=== PATIENT | male | born 1985 | race Hispanic/Latino ===

== ENCOUNTER 2019-03-14 08:20 | Day surgery (SDC) | payer OTHER ==
[2019-03-14] MEDS ORDERED: WATER FOR IRRIG STERILE IR ONE (08:34)
[2019-03-14] MEDS ORDERED: WATER FOR IRRIG STERILE ONE (08:34)
[2019-03-14] MEDS ORDERED: NACL 0.9% 1000 ML 1,000 ML IV SCH (09:00)
[2019-03-14] MEDS ORDERED: DIPRIVAN 10 MG/ML IV ONE ×2 (09:07→09:08)
[2019-03-14] MEDS ORDERED: XYLOCAINE 2% INFILTRATI ONE (09:08)
[2019-03-14] MEDS ORDERED: VERSED ONE (09:08)
--- NOTE | 2019-03-14 09:37 | Procedure Note ---
Date of procedure: 03/14/19 Pre-op diagnosis: H/O Cron's Disease (as per CT Scan) Post-op diagnosis: other (Small, Abnormal Area of Cecal Mucosa/ R/O Microscopic Colitis/ R/O Ileitis) Procedure: Colonoscopy with Biopsy Anesthesia: MAC Surgeon: SUZANNA WALSH Estimated blood loss: minimal Pathology: list Specimen disposition: to lab Condition: stable Disposition: same day (Avoid aspirin and NSAID for 5 days. Follow up in 1 to 2 weeks ([phone]). Further treatment as per Biopsy findings.)
--- NOTE | 2019-03-14 09:57 | Anesthesia Day of Surgery ---
Anesthesia Day of Surgery - Day of Surgery Patient Examined: Yes Patient H&P Reviewed: Yes Patient is NPO: Yes Beta Blockers: No
--- NOTE | 2019-03-14 09:58 | Anesthesia Consultation ---
Anesthesia Consult and Med Hx Date of service: 03/14/19 - Airway Anesthetic Teeth Evaluation: Good ROM Head & Neck: Adequate Mental/Hyoid Distance: Adequate Mallampati Class: Class III Intubation Access Assessment: Good - Pulmonary Exam CTA: Yes - Pre-Operative Health Status ASA Pre-Surgery Classification: ASA1 Proposed Anesthetic Plan: MAC
[2019-03-14 10:03] VITALS: BP 109/78
--- NOTE | 2019-03-14 10:30 | Operative Report ---
COLONOSCOPY INDICATIONS: This is a 33-year-old white male who was admitted to the hospital a year ago and had a CT scan done and was told that the CT scan was suggestive possibly of Crohn's disease. He is having a colonoscopy done for further assessment and to make sure that he truly does not have any evidence of inflammatory bowel disease. DESCRIPTION OF PROCEDURE: The procedure was done after getting informed consent with MAC anesthesia. Initial rectal exam was unremarkable. Instrument was passed through the rectum onto the cecum, which was identified by the ileocecal valve and the appendiceal orifice. Visualization was fair. The terminal ileum was intubated, showed normal mucosa. Biopsy was done to rule out for ileitis. There was one area of cecal patch, which showed a slightly abnormal mucosa. Photo documentation and biopsy was obtained to rule out for any type of colitis. The remaining part of the proximal colon, which included the remainder of the cecum and ascending colon including the transverse colon, descending colon and sigmoid showed normal mucosa with normal vascular markings. No significant pathology was noted in the remaining portion of the colon except for that small area of cecal patch, which showed some mild abnormal cecal mucosa. Random biopsies were done from the remaining portion of the colon to rule out for possible microscopic colitis. The rectum appeared normal on the retroverted view. ASSESSMENT: Possible history of inflammatory bowel disease. A small area of cecal mucosa, which may have been abnormal. Biopsy done to rule out for possible colitis. Normal terminal ileal mucosa. Biopsies, however, were done to rule out for possible ileitis and random biopsies done throughout the rest of the colon to rule out for possible microscopic colitis. There was minimal bleeding associated with the procedure. No complications associated with the procedure. The patient will be asked to avoid aspirin and aspirin-related products for the next few days and follow up in the office in 1-2 weeks' time. Further treatment adjustment will be according to the biopsy findings. RNAve was in the room throughout the entirety of the procedure. JOB# [id number] JOSE/NE
[2019-03-14] MEDS ORDERED: NACL 0.9% 1000 ML 1,000 ML ONE (11:34)
== END 2019-03-14 10:10 | disposition home or self-care (01) ==
LOC: GIO 08:20
DX: Z12.11 Encounter for screening for malignant neoplasm of colon (principal); K63.89 Other specified diseases of intestine; Z79.899 Other long term (current) drug therapy
CPT/HCPCS: 45380; 88305; J2250; J2704; J7030

== ENCOUNTER 2019-09-03 19:05 | Inpatient (IN) | payer OTHER ==
--- NOTE | 2019-09-03 20:26 | Event Note ---
ED Screening Note ED Screening Note: abdominal pain that began a couple days ago fever +diarrhea approximately 10 episodes no vomiting no nausea no sick contact no recent camping no recent travel no recent abx PMHx none no allergies to meds This initial assessment/diagnostic orders/clinical plan/treatment(s) is/are subject to change based on patients health status, clinical progression and re- assessment by fellow clinical providers in the ED. Further treatment and workup at subsequent clinical providers discretion. Patient/guardian urged not to elope from the ED as their condition may be serious if not clinically assessed and managed. Initial orders include: labs, Ct abd
[2019-09-03 21:39] LABS: Basophils % (Auto) 0.4 % (0.0-1.8); Eosinophils # (Auto) 0.2 K/mm3 (0.0-0.4); Eosinophils % (Auto) 1.8 % (0.0-4.3); Hematocrit 42.5 % (35.5-45.6); Hemoglobin 14.2 gm/dl (11.8-15.2); Lymphocytes # (Auto) 1.8 K/mm3 (1.2-5.4); Lymphocytes % (Auto) 16.1 % (13.4-35.0); Mean Corpuscular HGB Conc 33 % (32-34); Mean Corpuscular Volume 92 fl (84-94); Monocytes # (Auto) 1.2 K/mm3 (0.0-0.8); Monocytes % (Auto) 10.2 % (0.0-7.3); Platelet Count 262 K/mm3 (140-440); Red Blood Count 4.61 M/mm3 (3.65-5.03); Red Cell Distribution Width 12.6 % (13.2-15.2)
[2019-09-03 21:52] LABS: Alanine Aminotransferase 14 units/L (7-56); BUN/Creatinine Ratio 10; Blood Urea Nitrogen 10 mg/dL (9-20); Calcium 9.4 mg/dL (8.4-10.2); Hemolysis Index 3
[2019-09-03] MEDS ORDERED: LOPERAMIDE 2 MG CAP PO ONE (22:27)
[2019-09-03] MEDS ORDERED: ACETAMINOPHEN 325 MG TAB PO ONE (22:27)
[2019-09-03] MEDS ORDERED: LOPERAMIDE 2 MG/10 ML ORAL LIQD PO ONE (22:27)
[2019-09-03] MEDS ORDERED: SODIUM CHLORIDE 0.9% 1000 ML 1,000 ML IV ONE (22:27)
[2019-09-03] MEDS ORDERED: dexAMETHasone 20 MG/5 ML VIAL IV ONE (22:31)
--- NOTE | 2019-09-03 22:34 | Emergency Department Report ---
ED Abdominal Pain HPI - General Chief Complaint: Abdominal Pain Stated Complaint: FEVER,STOMACH PAIN Time Seen by Provider: 09/03/19 20:24 Source: patient Mode of arrival: Ambulatory Limitations: No Limitations - History of Present Illness Initial Comments: Mr. Beltran is a very pleasant 34-year-old male with a history of "gastroenteritis" who presents with fever diarrhea abdominal pain since Tuesday. Gradual onset of symptoms. He has 10-20 loose stools per day since Tuesday. Mild generalized crampy pain. No pain currently. Pain is intermittent. Decreased appetite. Only abdominal surgery includes colonoscopy. He underwent colonoscopy in March by GI physician Dr. Hidalgo to rule out Crohn's disease. He stated that the results were equivocal. Consequently he does not have a formal diagnosis of inflammatory bowel disease. No family history of inflammatory bowel disease. Mother has history of diabetes mellitus. He receives primary care through the [facility]. First flareup occurred 2 years ago. Has not had symptoms similar since that time. His is at the bedside. He lives with and children. He works as a diesel power mechanic. He serves in the [employer] Complaint: abdominal pain -: Gradual, days(s) (2) Location: diffuse Radiation: none Migration to: no migration Severity: mild Severity scale (0 -10): 0 Quality: cramping, fullness Consistency: intermittent Improves With: nothing Worsens With: nothing Context: other (previous history of "gastroenteritis") Associated Symptoms: nausea, diarrhea - Related Data Home Medications Medication Instructions Recorded Confirmed Last Taken Cetirizine HCl 10 mg PO DAILY 03/14/19 03/14/19 03/12/19 Allergies Allergy/AdvReac Type Severity Reaction Status Date / Time No Known Allergies Allergy Verified 09/03/19 20:26 ED Review of Systems ROS: Stated complaint: FEVER,STOMACH PAIN Other details as noted in HPI Comment: All other systems reviewed and negative Constitutional: fever. denies: malaise Cardiovascular: denies: chest pain Gastrointestinal: abdominal pain, nausea, diarrhea Musculoskeletal: denies: back pain ED Past Medical Hx - Past Medical History Previous Medical History?: Yes Additional medical history: Gastroenteritis, Recent Colonoscopy - Family History Family history: diabetes - Social History Smoking Status: Never Smoker Substance Use Type: None - Medications Home Medications: Home Medications Medication Instructions Recorded Confirmed Last Taken Type Cetirizine HCl 10 mg PO DAILY 0603/14/19 03/12/19 History ED Physical Exam - General Limitations: No Limitations General appearance: alert, in no apparent distress, other (ambulatory without difficulty, walking around the room) - Head Head exam: Present: atraumatic, normocephalic - Eye Eye exam: Present: normal appearance - ENT ENT exam: Present: mucous membranes moist - Neck Neck exam: Present: normal inspection, full ROM. Absent: tenderness, meningismus - Respiratory Respiratory exam: Present: normal lung sounds bilaterally. Absent: respiratory distress, wheezes, rales, rhonchi - Cardiovascular Cardiovascular Exam: Present: regular rate, normal rhythm, normal heart sounds. Absent: systolic murmur, diastolic murmur, rubs, gallop - GI/Abdominal GI/Abdominal exam: Present: soft, normal bowel sounds. Absent: distended, tenderness, guarding, rebound - Extremities Exam Extremities exam: Present: normal inspection - Neurological Exam Neurological exam: Present: alert, oriented X3 - Psychiatric Psychiatric exam: Present: normal affect, normal mood - Skin Skin exam: Present: warm, dry, intact, normal color. Absent: rash ED Course Vital Signs 09/03/19 09/03/19 09/03/19 19:25 22:58 23:00 Temperature 100.1 F H 98.5 F Pulse Rate 91 H 74 Respiratory 18 18 16 Rate Blood Pressure 130/79 Blood Pressure 117/76 [Left] O2 Sat by Pulse 98 99 Oximetry ED Medical Decision Making - Lab Data Result diagrams: 09/03/19 20:54 09/03/19 20:54 - Radiology Data Radiology results: report reviewed CT revealed dilated hyperenhancing fluid-filled appendix 1 cm in caliber with pericecal inflammatory change, - Medical Decision Making Mr. Beltran is a 34-year-old male who presents with 2 days of fever abdominal pain diarrhea. Mr. Beltran has been pain free throughout his ED encounter. CT revealed acute appendicitis. Gen. surgeon Dr. Jordan consulted who plans for surgery this morning. Dr. Jordan recommended NPO status. IV Zosyn initiated in the Ed. Hospitalist will admit. Critical care attestation.: If time is entered above; I have spent that time in minutes in the direct care of this critically ill patient, excluding procedure time. ED Disposition Clinical Impression: Acute appendicitis Disposition: OP ADMIT IP TO THIS HOSP Is pt being admited?: Yes Does the pt Need Aspirin: No Condition: Stable Referrals: PRIMARY CARE,MD [Primary Care Provider] - 3-5 Days
[2019-09-03 23:11] LABS: Bilirubin,Urine NEG (Negative); Blood,Urine NEG (Negative); Color,Urine Yellow (Yellow); Protein,Urine <15 mg/dL mg/dL (Negative); Urobilinogen,Urine < 2.0 mg/dL (<2.0)
--- NOTE | 2019-09-04 00:05 | Cat Scan Report ---
CT ABDOMEN AND PELVIS WITH IV CONTRAST INDICATION: Generalized abdominal pain, fever and diarrhea. TECHNIQUE: Following the administration of intravenous contrast, multiple axial CT images of the abdo men and pelvis were acquired. Sagittal and coronal reformats were obtained. All CT performed at this facility utilize dose reduction techniques including automated exposure control, iterative reconstru ction and weight based dosing when appropriate to reduce patient radiation dose to as low as reasonab ly achievable. COMPARISON: None FINDINGS: Limited imaging of the bilateral lung bases demonstrates no acute abnormality. Abdomen: The liver, gallbladder, spleen, pancreas, bilateral adrenal glands and bilateral kidneys jenna w no evidence of acute abnormality. The appendix is fluid-filled, hyperenhancing and dilated to a maximum caliber of approximately 1 cm. There is a mild amount of pericecal inflammatory change. No extraluminal air is identified. There is no evidence of bowel obstruction. Pelvis: No large amount of free pelvic fluid is visualized. The urinary bladder appears normal. Liqui d stool is noted within the distal colon and rectum. Bones and Soft Tissues: Evaluation of bony structures demonstrate no evidence of acute bony abnormali ty. Soft tissue structures appear grossly normal. IMPRESSION: 1. Dilated hyperenhancing fluid-filled appendix most compatible with acute appendicitis. Signer Name: Ameena Tubbs MD Signed: 09/04/2019 12:01 AM Workstation Name: [id number]
[2019-09-04] MEDS ORDERED: PIPERACIL/TAZOBACTA 4.5/NS 100 4.5 GM/100 ML VIAL IV ONE (00:15)
[2019-09-04] MEDS ORDERED: SODIUM CHLORIDE 0.9% 1000 ML 1,000 ML IV ONE (00:15)
[2019-09-04] MEDS ORDERED: ONDANSETRON 4 MG/2 ML INJ IV PRN (01:07)
[2019-09-04] MEDS ORDERED: MORPHINE 2 MG/1 ML INJ IV PRN (01:07)
[2019-09-04] MEDS ORDERED: ACETAMINOPHEN 325 MG TAB PO PRN (01:07)
--- NOTE | 2019-09-04 01:11 | History and Physical Report ---
History of Present Illness Date of examination: 09/04/19 Date of admission: 09/04/19 00:19 Chief complaint: Diarrhea, abdominal pain of fever History of present illness: 34 Year old male presenting to the emergency room. Complaining of abdominal pain, fever and diarrhea. Abdominal pain is said to be intermittent and is more in the lower abdomen. He denies any chest pain or shortness of breath. His workup in the emergency room suggestive of acute appendicitis. Past History Past Medical History: No medical history Past Surgical History: No surgical history Social history: no significant social history Family history: no significant family history Medications and Allergies Allergies Allergy/AdvReac Type Severity Reaction Status Date / Time No Known Allergies Allergy Verified 09/03/19 20:26 Home Medications Medication Instructions Recorded Confirmed Last Taken Type Cetirizine HCl 10 mg PO DAILY 03/14/19 09/04/19 06 History Active Meds: Active Medications Sodium Chloride (Nacl 0.9% 1000 Ml) 1,000 mls @ 999 mls/hr IV BOLUS ONE Stop: 09/04/19 01:15 Review of Systems Constitutional: fever Gastrointestinal: abdominal pain, diarrhea Exam - Constitutional Vitals: Temp Pulse Resp BP Pulse Ox 98.5 F 74 16 113/81 99 09/03/19 23:00 09/03/19 23:00 09/03/19 23:00 09/04/19 00:01 09/04/19 00:01 General appearance: Present: no acute distress, well-nourished - EENT Eyes: Present: PERRL, EOM intact ENT: hearing intact, clear oral mucosa, dentition normal - Neck Neck: Present: supple, normal ROM - Respiratory Respiratory effort: normal Respiratory: bilateral: CTA - Cardiovascular Rhythm: regular Heart Sounds: Present: S1 & S2 - Extremities Extremities: no ischemia, pulses symmetrical, No edema, Full ROM Peripheral Pulses: within normal limits - Abdominal General gastrointestinal: Present: soft, non-tender, non-distended - Integumentary Integumentary: Present: clear, warm, dry, normal turgor - Musculoskeletal Musculoskeletal: strength equal bilaterally - Psychiatric Psychiatric: appropriate mood/affect, intact judgment & insight, cooperative - Neurologic Neurologic: CNII-XII intact, moves all extremities Results - Labs CBC & Chem 7: 09/03/19 20:54 09/03/19 20:54 Labs: Abnormal lab results 09/03/19 09/03/19 Range/Units 20:54 20:54 WBC 11.4 H (4.5-11.0) K/mm3 RDW 12.6 L (13.2-15.2) % [place] % (Auto) 10.2 H (0.0-7.3) % [place] # 1.2 H (0.0-0.8) K/mm3 Seg Neutrophils % 71.5 H (40.0-70.0) % Seg Neutrophils # 8.1 H (1.8-7.7) K/mm3 Sodium 134 L (137-145) mmol/L Chloride 96.0 L (98-107) mmol/L Glucose 117 H (75-100) mg/dL Lipase 7 L (13-60) units/L Assessment and Plan - Patient Problems (1) Acute appendicitis Current Visit: Yes Status: Acute Plan to address problem: Will place on analgesic medication. He is made NPO and will place a consult to General surgeon. (2) DVT prophylaxis Current Visit: Yes Status: Acute Plan to address problem: We will place on sequential compression devices (3) Full code status Current Visit: Yes Status: Acute
[2019-09-04] MEDS ORDERED: SODIUM CHLORIDE 0.9% 1000 ML 1,000 ML IV SCH (02:00)
[2019-09-04] MEDS ORDERED: fentaNYL 100 MCG/2 ML INJ ONE (07:45)
[2019-09-04] MEDS ORDERED: PROPOFOL 200 MG/20 ML VIAL IV ONE (07:45)
[2019-09-04] MEDS ORDERED: LIDOCAINE MPF (2%) 20 MG/1 ML VIAL 5 ML ONE (07:47)
[2019-09-04] MEDS ORDERED: ROCURONIUM 50 MG/5 ML INJ IV ONE (07:47)
[2019-09-04] MEDS ORDERED: PIPERACIL/TAZOBACTA 4.5/NS 100 4.5 GM/100 ML VIAL IV SCH (08:00)
--- NOTE | 2019-09-04 08:13 | Anesthesia Day of Surgery ---
Anesthesia Day of Surgery - Day of Surgery Patient Examined: Yes Patient H&P Reviewed: Yes Patient is NPO: Yes
--- NOTE | 2019-09-04 08:13 | Anesthesia Consultation ---
Anesthesia Consult and Med Hx Date of service: 09/04/19 - Airway Anesthetic Teeth Evaluation: Good ROM Head & Neck: Adequate Mental/Hyoid Distance: Adequate Mallampati Class: Class I Intubation Access Assessment: Good - Pulmonary Exam CTA: Yes - Cardiac Exam Cardiac Exam: RRR - Pre-Operative Health Status ASA Pre-Surgery Classification: ASA1 Proposed Anesthetic Plan: General - Pre-Anesthesia Comment Pre-Anesthesia Comments: Acute Appendicitis, denies N/V - Pulmonary Hx Smoking: Yes (Quit 4-5 yrs ago ) - Additional Comments Anesthesia Medical History Comments: Hx Gastroenteritis
[2019-09-04] MEDS ORDERED: LIDOCAINE (1%) 10 MG/1 ML VIAL 20 ML MDV ONE (08:16)
[2019-09-04] MEDS ORDERED: BUPIVACAINE/PF (0.5%) 5 MG/1 ML 30 ML VIAL INFILTRATI ONE (08:17)
[2019-09-04] MEDS ORDERED: BUPIVACAINE/PF (0.5%) 5 MG/1 ML 10 ML VIAL INFILTRATI ONE ×3 (08:18→10:06)
[2019-09-04] MEDS ORDERED: HYDROmorphone 1 MG/1 ML INJ IV PRN (08:30)
--- NOTE | 2019-09-04 08:46 | Consultation ---
History of Present Illness Consult date: 09/04/19 Reason for consult: abdominal pain Chief complaint: abdominal pain - History of present illness History of present illness: 34 yo M with no PMHx presents to ER with 4 days of intermittent, gradually worse irma RLQ abdominal pain. He states it is sharp. No inciting factors. He states he had the same symptoms 2 years ago and underwent an extensive w/u for Crohn's disease which was negative. +F/c, diarrhea. No cp, sob. Past History Past Medical History: No medical history Past Surgical History: Other (colonoscopy) Social history: no significant social history Family history: no significant family history Medications and Allergies Allergies Allergy/AdvReac Type Severity Reaction Status Date / Time No Known Allergies Allergy Verified 09/03/19 20:26 Home Medications Medication Instructions Recorded Confirmed Last Taken Type Cetirizine HCl 10 mg PO DAILY 03/14/19 09/04/19 03/12/19 History Active Meds: Active Medications Acetaminophen (Tylenol) 650 mg PO Q4H PRN PRN Reason: Pain MILD(1-3)/Fever >100.5/HERNANDEZ Hydromorphone HCl (Dilaudid) 0.5 mg IV Q10MIN PRN PRN Reason: Pain , Severe (7-10) Stop: 09/04/19 12:30 Sodium Chloride (Nacl 0.9% 1000 Ml) 1,000 mls @ 75 mls/hr IV DIRECT YUE Last Admin: 09/04/19 03:34 Dose: 75 mls/hr Documented by: Piperacillin Sod/Tazobactam Sod (Zosyn/Ns 4.5gm/100ml) 4.5 gm in 100 mls @ 200 mls/hr IV Q8HR YUE; Protocol Lactated Ringer's (Lactated Ringers) 1,000 mls @ 100 mls/hr IV DIRECT YUE Midazolam HCl (Versed) 2 mg IV PREOP NR Stop: 09/04/19 23:59 Morphine Sulfate (Morphine) 2 mg IV Q4H PRN PRN Reason: Pain, Moderate (4-6) Ondansetron HCl (Zofran) 4 mg IV Q8H PRN PRN Reason: Nausea And Vomiting Sodium Chloride (Sodium Chloride Flush Syringe 10 Ml) 10 ml IV BID YUE Sodium Chloride (Sodium Chloride Flush Syringe 10 Ml) 10 ml IV PRN PRN PRN Reason: LINE FLUSH Review of Systems All systems: negative (10 pt ROS performed and negative except for that listed in HPI) Exam Vital Signs Temp Pulse Resp BP Pulse Ox 100.1 F H 91 H 18 130/79 98 09/03/19 19:25 09/03/19 19:25 09/03/19 19:25 09/03/19 19:25 09/03/19 19:25 Narrative exam: Gen; AAOx3. NAD ENT: No scleral icterus or conjunctival pallor CV: s1, S2+ Resp: even and unlabored Abd: soft, ND, mild discomfort in suprapubic region. no r/r/g Ext: no c/c/e Results - Labs 09/03/19 20:54 09/03/19 20:54 Abnormal lab results 09/03/19 09/03/19 Range/Units 20:54 20:54 WBC 11.4 H (4.5-11.0) K/mm3 RDW 12.6 L (13.2-15.2) % [place] % (Auto) 10.2 H (0.0-7.3) % [place] # 1.2 H (0.0-0.8) K/mm3 Seg Neutrophils % 71.5 H (40.0-70.0) % Seg Neutrophils # 8.1 H (1.8-7.7) K/mm3 Sodium 134 L (137-145) mmol/L Chloride 96.0 L (98-107) mmol/L Glucose 117 H (75-100) mg/dL Lipase 7 L (13-60) units/L Diabetes panel 09/03/19 Range/Units 20:54 Sodium 134 L (137-145) mmol/L Potassium 3.8 (3.6-5.0) mmol/L Chloride 96.0 L (98-107) mmol/L Carbon Dioxide 22 (22-30) mmol/L BUN 10 (9-20) mg/dL Creatinine 1.0 (0.8-1.5) mg/dL Glucose 117 H (75-100) mg/dL Calcium 9.4 (8.4-10.2) mg/dL AST 17 (5-40) units/L ALT 14 (7-56) units/L Alkaline Phosphatase 100 (35-129) units/L Total Protein 7.7 (6.3-8.2) g/dL Albumin 4.0 (3.9-5) g/dL Calcium panel 09/03/19 Range/Units 20:54 Calcium 9.4 (8.4-10.2) mg/dL Albumin 4.0 (3.9-5) g/dL Pituitary panel 09/03/19 Range/Units 20:54 Sodium 134 L (137-145) mmol/L Potassium 3.8 (3.6-5.0) mmol/L Chloride 96.0 L (98-107) mmol/L Carbon Dioxide 22 (22-30) mmol/L BUN 10 (9-20) mg/dL Creatinine 1.0 (0.8-1.5) mg/dL Glucose 117 H (75-100) mg/dL Calcium 9.4 (8.4-10.2) mg/dL Adrenal panel 09/03/19 Range/Units 20:54 Sodium 134 L (137-145) mmol/L Potassium 3.8 (3.6-5.0) mmol/L Chloride 96.0 L (98-107) mmol/L Carbon Dioxide 22 (22-30) mmol/L BUN 10 (9-20) mg/dL Creatinine 1.0 (0.8-1.5) mg/dL Glucose 117 H (75-100) mg/dL Calcium 9.4 (8.4-10.2) mg/dL Total Bilirubin 0.30 (0.1-1.2) mg/dL AST 17 (5-40) units/L ALT 14 (7-56) units/L Alkaline Phosphatase 100 (35-129) units/L Total Protein 7.7 (6.3-8.2) g/dL Albumin 4.0 (3.9-5) g/dL - Imaging CT scan - abdomen: report reviewed, image reviewed CT scan - pelvis: report reviewed, image reviewed Assessment and Plan 34 yo M with acute appendicitis Plan: 1. NPO 2. IVF 3. IV abx - on zosyn 4. prn pain control 5. recommend OR for laparoscopic appendectomy. All risks, benefits, alternatives to surgery discussed with patient and questions answered. Consent obtained. Thank you, please call with questions.
[2019-09-04] MEDS ORDERED: LACTATED RINGERS 1,000 ML IV SCH (09:00)
[2019-09-04] MEDS ORDERED: MIDAZOLAM 2 MG/2 ML INJ IV NR (09:00)
[2019-09-04] MEDS ORDERED: LIDOCAINE (1%) 10 MG/1 ML VIAL 20 ML MDV INFILTRATI ONE ×2 (10:06)
[2019-09-04] MEDS ORDERED: NEOSTIGMINE 10MG/10 ML INJ MDV ONE (10:19)
[2019-09-04] MEDS ORDERED: GLYCOPYRROLATE 0.4 MG/2 ML INJ ONE (10:19)
[2019-09-04] MEDS ORDERED: ONDANSETRON 4 MG/2 ML INJ ONE (10:19)
[2019-09-04] MEDS ORDERED: dexAMETHasone 20 MG/5 ML VIAL ONE (10:19)
[2019-09-04] MEDS ORDERED: HYDROmorphone 1 MG/1 ML INJ ONE (10:31)
[2019-09-04] MEDS ORDERED: KETOROLAC 30 MG/1 ML INJ ONE (10:40)
--- NOTE | 2019-09-04 10:43 | Post Operative Note ---
Date of procedure: 09/04/19 Pre-op diagnosis: acute appendicitis Post-op diagnosis: same Findings: dilated, thickened, inflamed appendix folded upon itself Anesthesia: GENIA, local Surgeon: ATIF JAY Estimated blood loss: minimal Pathology: list (appendix) Specimen disposition: to lab Condition: stable Disposition: PACU
[2019-09-04] MEDS ORDERED: oxyCODONE /ACETAMINOPHEN 5-325MG TAB PO PRN (11:00)
--- NOTE | 2019-09-04 11:13 | Discharge Summary ---
Providers - Providers Date of Admission: 09/04/19 00:19 Attending physician: LEX NAVARRO MD 09/04/19 00:21 Consult to Physician [CONS] Stat Comment: Consulting Provider: ATIF JAY Physician Instructions: Reason For Exam: acute appendicitis Primary care physician: ENDOSCOPY NURSE Hospitalization Condition: Stable Hospital course: 34-year-old man who presented with abdominal pain. He was found to have acute appendicitis. He had an uneventful laparoscopic appendectomy, he received IV fluids. Patient was discharged in improved condition. Preventative health counseling performed for 17 minutes Diagnosis Acute appendicitis SIRS without organ dysfunction hyponatremia Disposition: DC- TO HOME OR SELFCARE Time spent for discharge: 33 mins Core Measure Documentation - Palliative Care Palliative Care/ Comfort Measures: Not Applicable - Core Measures Any of the following diagnoses?: none Exam - Constitutional Vitals: Temp Pulse Resp BP Pulse Ox 97.2 F L 67 15 118/83 98 09/04/19 10:46 09/04/19 11:01 09/04/19 11:01 09/04/19 11:01 09/04/19 11:01 General appearance: Present: no acute distress, well-nourished - EENT Eyes: Present: PERRL ENT: hearing intact, clear oral mucosa - Neck Neck: Present: supple, normal ROM - Respiratory Respiratory effort: normal Respiratory: bilateral: CTA - Cardiovascular Heart Sounds: Present: S1 & S2. Absent: rub, click - Extremities Extremities: pulses symmetrical, No edema Peripheral Pulses: within normal limits - Abdominal General gastrointestinal: Present: soft, non-tender, non-distended, normal bowel sounds Male genitourinary: Present: normal - Integumentary Integumentary: Present: clear, warm, dry - Musculoskeletal Musculoskeletal: gait normal, strength equal bilaterally - Psychiatric Psychiatric: appropriate mood/affect, intact judgment & insight - Neurologic Neurologic: CNII-XII intact, moves all extremities Plan Follow up with: ATIF JAY DO [Staff Physician] - 14 Days PRIMARY CARE, [Primary Care Provider] - 3-5 Days Forms: Work/School Release Form Prescriptions: oxyCODONE /ACETAMINOPHEN [Percocet 5/325 mg] 2 tab PO Q6H PRN #20 tablet PRN Reason: Pain, Moderate (4-6)
[2019-09-04 11:38] VITALS: BP 122/78
--- NOTE | 2019-09-04 13:44 | Post Anesthesia Evaluation ---
- Post Anesthesia Evaluation Patient Participated: Yes Airway Patent: Yes Stable Respiratory Function: Yes Nausea/Vomiting: No Temp > 96.8F: Yes Pain Manageable: Yes Adequeate Hydration: Yes Anesthesia Complications: No Block Receding Appropriately: Not Applicable Patient on Ventilator: No
--- NOTE | 2019-09-12 12:10 | Operative Report ---
PREOPERATIVE DIAGNOSIS: Acute appendicitis. POSTOPERATIVE DIAGNOSIS: Acute appendicitis. FINDINGS: Dilated thickened and inflamed appendix, folded upon itself. ANESTHESIA: General endotracheal anesthesia, local. SURGEON: Akosua Jordan DO ESTIMATED BLOOD LOSS: Minimal. PATHOLOGY: Appendix. SPECIMEN DISPOSITION: To lab. CONDITION ON DISPOSITION: The patient is stable to PACU. HISTORY OF PRESENT ILLNESS AND INDICATION: The patient is a 34-year-old male who presented to the hospital with lower abdominal pain, leukocytosis and CT scan findings consistent with acute appendicitis. Recommendation was to proceed with laparoscopic appendectomy. All risks, benefits and alternatives to surgery were discussed with the patient and questions answered. Consent was obtained. PROCEDURE IN DETAIL: The patient was identified in the preoperative area and taken back to the operating room and placed on the operating table in supine position. After anesthesia was induced, a Cherry catheter was sterilely placed by the circulating nurse. The abdomen was then prepped and draped in the usual sterile fashion. Timeout was performed. Local anesthetic was infiltrated into all skin incision sites. A supraumbilical incision was made through which a Veress needle was inserted. The Veress needle position was confirmed using saline drop test and the abdomen insufflated to 15 mmHg. After the abdomen was insufflated, the Veress needle was removed and a 5 mm Optiview trocar was placed through this incision. The abdomen was inspected. There was no underlying injury to any of the abdominal structures. The patient was placed in Trendelenburg and tilted to the left. Additional left lower quadrant 12 mm trocar and a 5 mm suprapubic trocar were placed under direct visualization. The cecum and terminal ileum were identified and traced back to the appendix. The appendix was very thickened, dilated and inflamed. It appeared to be curled upon itself and adhered. The appendix was grasped and retracted cephalad and anteriorly towards the abdominal wall. Mesoappendix was very meticulously dissected and ligated using Harmonic scalpel until the base of the appendix was reached. The base of the appendix was soft and the appendix was transected using an [place] Flex 45 mm white load stapler. The appendix was placed into an EndoCatch bag and removed via the 12 mm port. The staple line was visualized and intact. The mesoappendix was also hemostatic. There was no bleeding or leakage seen from either area. The area was irrigated until the irrigant returned clear. The 12 mm port fascia was then closed with interrupted 0 Vicryl suture using the Varinder-Elpidio device. The remainder of the ports were then removed under direct visualization and the abdomen desufflated. The skin incisions once again infiltrated with local anesthetic and closed with 4-0 Monocryl subcuticular stitches and skin glue. At the end of the case, all sponge, instrument, sharp counts were correct x 2. The patient was awoken from anesthesia. Cherry catheter removed and he was extubated. He was taken back to the PACU in stable condition. JOB# [id number] KATHERINE/NE DONOVAN
== END 2019-09-04 15:10 | disposition home or self-care (01) | DRG 342 ==
LOC: ED 19:05 → 3A 09-04 00:19 → 3B-SURG 09-04 00:55
PROVIDERS: ADMIT Internal Medicine Geriatric Medicine; ATTEND Internal Medicine
PROC: 0DTJ4ZZ Resection of Appendix, Percutaneous Endoscopic Approach (ICD-10-PCS; principal; 2019-09-04)
DX: K35.80 Unspecified acute appendicitis (principal); E87.1 Hypo-osmolality and hyponatremia; R65.10 Systemic inflammatory response syndrome (SIRS) of non-infectious origin without acute organ dysfunction; K52.9 Noninfective gastroenteritis and colitis, unspecified; Z83.3 Family history of diabetes mellitus; Z87.891 Personal history of nicotine dependence
CPT/HCPCS: 36415; 74177; 80053; 81001; 83690; 85025; 88304; G0378; J1100; J1170; J1885; J2250; J2405; J2543; J2704; J2710; J3010; J7030; Q9967